=== PATIENT | female | born 1990 | race Caucasian/White ===

== ENCOUNTER 2022-10-09 17:39 | Emergency (ER) | payer SELFPAY ==
[2022-10-09 17:41] VITALS: BP 150/95; PULSE 84; RESP 17; TEMP 36.6; O2SAT 100; BMI 46.8
--- NOTE | 2022-10-09 18:05 | [facility].EDGENADL ---
Discharge Plan Disposition Patient Disposition: Home, Self-Care Condition: Good Referrals Follow up/Referrals: Provider,Referral, [Primary Care Provider] - See instructions Clinical Impressions Clinical Impression: Vaginal bleeding Instructions Patient Instructions: DI for Vaginal Bleeding Discharge ED Provider: Daryl Dodson General Adult HPI General Chief complaint: Vaginal Bleeding Stated complaint: heavy menstral bleeding pain rt side Time Seen by Provider: 10/09/22 17:40 Mode of Arrival: Ambulatory Source of Information: Patient Limitations: No Limitations Description of Symptoms (Recalled from ER Triage Doc. by RN): pt to ED with heavy vaginal bleeding since yesterday. pt reports a history of heavy menstural cycles that are irregular for years. pt also reports abd. cramping. History of Present Illness HPI narrative: Patient is a 32-year-old female with history of irregular heavy periods presents with heavy vaginal bleeding. She says that she has had irregular periods for numerous years in which she will oftentimes not have one for many months in a row. She is currently working with her [employer] as she says that she has been having irregular periods with heavy bleeding. She says that her bleeding is no heavier than it normally is. She says that she is going through multiple pads a day but that this is normal for her when she does get her period. She says that she came in today because she started to have suprapubic cramping which is abnormal for her. Denies any dysuria or frequency. Denies any back pain. Denies any fever or chills. Related Data Allergies Allergy/AdvReac Type Severity Reaction Status Date / Time penicillin G [PENICILLIN G] Allergy Mild Verified 10/09/22 18:05 [facility] Disclaimer: The information contained in this section may have been updated after the patient was seen, as this information can be updated by other users. Social History Smoking Status: Never smoker alcohol intake: never current occupational status: employed Travel in the last 8 weeks: None ROS Obtained: Yes All systems reviewed & no additional complaints except as documented Physical Exam General General appearance: alert and in no apparent distress Head Head exam: atraumatic, normocephalic and normal inspection Eye Eye exam: Present normal appearance and PERRL ENT ENT exam: Present normal exam, mucous membranes moist and normal external ear exam Neck Neck exam: Present normal inspection and trachea midline Chest Chest inspection: Present normal inspection and symmetric chest wall rise Respiratory Respiratory exam: Present normal lung sounds bilaterally; Absent respiratory distress Cardiovascular Cardiovascular exam: Present regular rate and normal rhythm Abdominal Exam Abdominal exam: Present soft and tenderness; Absent distention or guarding Abdominal tenderness: Present suprapubic Extremities Exam Extremities exam: Present normal inspection; Absent edema Neurological Exam Neurological exam: Present alert and oriented X3 Psychiatric Psychiatric exam: Present normal affect and normal mood Skin Skin exam: Present warm, dry, intact and normal color Medical Decision Making Medical Records Medical records reviewed: Yes I reviewed the patient's medical records. [place] Inquiry Pt receiving controlled substance: No Vital Signs: 10/09/22 17:41 Temperature 97.8 F Temperature Source Oral Pulse Rate [Left Radial] 84 Respiratory Rate 17 Blood Pressure [Right Arm] 150/95 H Blood Pressure Mean [Right Arm] 113 Blood Pressure Source [Right Arm] Automatic Cuff Blood Pressure Position [Right Arm] Sitting 02 Sat by Pulse Oximetry 100 Oxygen Delivery Method Room Air Lab Data Lab Results 10/09/22 17:33: Urine Color Keli, Urine Appearance Cloudy, Urine pH 5.5, Ur Specific [place] >= 1.030, Urine Protein 2+, Urine Glucose (UA) Negative, Urine Ketones Negative, Urine Blood 3+, Urine Nitrate Ne
[2022-10-09 18:21] LABS: Basophils # 0.1 K/mm3 (0-0.2); Basophils % 0.7 % (0.1-2.0); Eosinophils # 0.1 K/mm3 (0.0-0.4); Eosinophils % 0.4 % (0.1-12.0); Hematocrit 45.8 % (37.0-47.0); Hemoglobin 15.4 g/dL (12.2-16.2); Lymphocytes # 1.4 K/mm3 (0.7-4.5); Lymphocytes % 7.5 % (10-50); Mean Corpuscular HGB Conc 33.5 g/dL (31.8-35.4); Mean Corpuscular Hemoglobin 29.9 pg (27.0-31.2); Mean Corpuscular Volume 89.4 fl (81-99); Monocytes # 0.5 K/mm3 (0.1-1.0); Neutrophils % 88.4 % (37.0-80.0); Platelet Count 508 K/mm3 (142-424); Red Blood Count 5.13 M/mm3 (4.20-5.40); Red Cell Distribution Width 13.2 % (11.5-17.5); White Blood Count 18.2 K/mm3 (4.8-10.8)
[2022-10-09 18:23] LABS: MANUAL DIFFERENTIAL MANUAL DIFFERENTIAL (MANUAL DIFF)
[2022-10-09 18:24] LABS: Chloride 103 mmol/L (98-107); Potassium 3.4 mmoL/L (3.5-5.1); Sodium 144 mmol/L (136-145)
[2022-10-09 18:26] LABS: Alanine Aminotransferase 27 U/L (12-78); Aspartate Amino Transferase 34 U/L (14-36); Blood Urea Nitrogen 17 mg/dl (7-17); Creatinine Clearance Estimated 64 mL/min (50-200); Estimated Glomerular Filt Rate 73 ml/min (>60); GFR (African American) 88 ML/MIN (>60)
[2022-10-09 18:27] LABS: Albumin Level 5.3 g/dl (3.5-5.0); Albumin/Globulin Ratio 1.1 (1.1-1.8); Alkaline Phosphatase 102 U/L (38-126); Anion Gap 19.4 mEq/L (5-15); Bilirubin,Total 0.6 mg/dl (0.2-1.3); Carbon Dioxide 25 mmol/L (22.0-30.0); Globulin 4.9 g/dL (1.3-3.2); Glucose 125 mg/dl (74-100); Total Protein,Serum 10.2 g/dl (6.3-8.2)
[2022-10-09 18:29] LABS: Microscopic, Urine URINE MICROSCOPIC (MICROSCOPIC)
[2022-10-09 18:33] LABS: HCG Qualitative, Serum Negative (Negative)
[2022-10-09 18:34] LABS: Appearance,Urine CLOUDY (Clear); Blood, Urine 3+ (Negative); Color,Urine AMBER (Yellow); Glucose,Urine (UA) Negative (Negative); Ketones,Urine Negative (Negative); Leukocyte Esterase,Urine Negative (Negative); Nitrate,Urine Negative (Negative); PH,Urine 5.5 (5.0-8.5); Protein,Urine 2+ (Negative); Specific Gravity, Urine >= 1.030 (1.005-1.030); Urobilinogen,Urine 0.2 EU/dl (0.2)
[2022-10-09 18:38] LABS: Bilirubin,Urine 1+ (Negative)
[2022-10-09 18:38] LABS: Eosinophils % 1 % (0-3); Lymphocytes % 7 % (10-50); Monocytes % 1 % (2-9); Neutrophils % 90 % (42-76); Total Cells Counted 100
[2022-10-09 18:39] LABS: Platelet Estimate Slight Increase; RBC Morphology Normal
[2022-10-09 19:03] LABS: Bacteria,Urine Trace /lpf; RBC,Urine TNTC #/hpf (0-3); Squamous Epithelial Cell,Urine Occasional #/hpf (0-5); WBC,Urine Occasional #/hpf (0-3)
[2022-10-09 19:59] VITALS: BP 138/74; PULSE 68; RESP 16; TEMP 36.8; O2SAT 99
[2022-10-09 20:05] LABS: INR 0.96 (0.9-1.1); Prothrombin Time 10.4 seconds (10.1-12.5)
== END 2022-10-09 20:00 | disposition home or self-care (01) ==
PROVIDERS: Emergency Provider Student in an Organized Health Care Education/Training Program
DX: N92.1 Excessive and frequent menstruation with irregular cycle (principal); R10.819 Abdominal tenderness, unspecified site
CPT/HCPCS: 36415; 80053; 81001; 84703; 85007; 85025; 85610; 86850; 96360; 99284; 99285